=== PATIENT | female | born 1980 | race Caucasian/White ===

== ENCOUNTER 2017-02-12 17:57 | Emergency (ER) | payer OTHER ==
[~2017-02-12] VITALS: Ht 154.9 cm; Wt 52.2 kg
[~2017-02-12 17:57] MED LIST: DIVALPROEX SOD250 M2 PO; GABAPENTIN300 M2 PO; LAMOTRIGINE25 M3 PO; MEDROL4 M2 PO; TRAMADOL HCL50 M1 PO
[2017-02-12 18:01] VITALS: BP 119/84
--- NOTE | 2017-02-12 18:42 | ED HEADACHE COMPLAINT ---
History of Present Illness General Chief Complaint: Headache Stated Complaint: PT HAS A HEADACHE FOR 10 DYS Source: patient, old records Exam Limitations: no limitations Vital Signs & Intake/Output Vital Signs & Intake/Output Vital Signs Date Time Temp Pulse Resp B/P Pulse O2 O2 Flow FiO2 Ox Delivery Rate 02/12 1801 98.5 108 20 119/84 97 Room Air Allergies Coded Allergies: Iodinated Contrast Media - Oral and (ANAPHYLAXIS 02/12/17) aspirin (UPSET STOMACH 02/12/17) bupropion (From WELLBUTRIN) (UPSET STOMACH 02/12/17) naproxen (VOMITING 02/12/17) shellfish derived (SWELL, REDNESS, THROAT SWELLS 02/12/17) Reconcile Medications Cyclobenzaprine HCl 5 MG TABLET 1 TAB PO TIDPRN PRN neck pain/muscle relaxant may cause drowsiness Gabapentin 300 MG CAPSULE 1 CAP PO QPM SLEEP (Reported) Lamotrigine (Lamictal) 100 MG TABLET 1 TAB PO DAILY MOODS (Reported) Sumatriptan Succinate 25 MG TABLET 1 TAB PO AD PRN MIGRAINES (Reported) Triage Note: TRIAGE: PT TO ER C/C HEAD AND NECK PAIN X 10 DAYS, CONSTANT SINCE ONSET. HX OF NECK SURGERIES AND MIGRAINE HEADACHES. TAKING IMITREX AND ADVIL WITH NO RELIEF NOTED. +N/V. +LIGHT SENSITIVITY. -SOUND SENSITIVITY. Triage Nurses Notes Reviewed? yes : No Patient currently breastfeeds: No HPI: Patient is a 36 year old female presents complaining of neck pain radiating into her head x 10 days. Pain is a pressure pain, with mild associated photophobia. Pain is currently 10/10. Patient has been taking Imitrex and excedrin with no improvement. Associated nausea and vomiting this morning. Headache feels different than previous migraine headaches. Denies recent trauma, fevers, chills, rashes, numbness, extremity weakness. Past History Travel History Traveled to [place] past 21 day No Medical History Any Pertinent Medical History? see below for history Neurological: NONE EENT: NONE Cardiovascular: NONE Respiratory: NONE Gastrointestinal: NONE Hepatic: NONE Renal: NONE Musculoskeletal: disk herniation, chronic neck pain Psychiatric: mood disorder Endocrine: NONE Blood Disorders: NONE Cancer(s): NONE [employer]PERATOR/Reproductive: NONE Surgical History Surgical History: cervical spine surgery 2009 and 2011 Psychosocial History What is your primary language Algerian Tobacco Use: Current Daily Use Daily Tobacco Use Amount/Type: => 5 Cigarettes daily ETOH Use: denies use Illicit Drug Use: denies illicit drug use Family History Hx Contributory? No Review of Systems Review of Systems Constitutional: Denies: chills, fever. Eyes: Reports: photophobia. Denies: blurred vision. Ears, Nose, Throat, Mouth: Reports: no symptoms. Respiratory: Denies: cough, short of breath. Cardiovascular: Denies: chest pain. Gastrointestinal/Abdominal: Reports: nausea, vomiting. Denies: abdominal pain. Musculoskeletal: Reports: neck pain. Skin: Reports: no symptoms. Neurological/Psychological: Reports: see HPI. Hematologic/Endocrine: Reports: no symptoms. Endocrine: Reports: no symptoms. Immunologic/Allergic: Reports: no symptoms. Physical Exam Physical Exam General Appearance: well developed/nourished, alert, awake Head: atraumatic, normal appearance, placing pressure bitemporally mildly improves headache Eyes: Bilateral: normal appearance, PERRL, EOMI, other (grossly normal fundoscope exam ). Ears, Nose, Throat: hearing grossly normal Neck: normal inspection, supple, full range of motion, mild bilateral posterior cervical tenderness. no lymphadenopathy Respiratory: normal breath sounds, chest non-tender, no respiratory distress, lungs clear Cardiovascular: regular rate/rhythm Back: normal inspection, normal range of motion Extremities: normal inspection, normal capillary refill, normal range of motion, no edema Psychiatric: awake, alert, oriented x 3 Cranial Nerves: normal hearing, normal speech, PERRL Coordination/Gait: normal finger to nose, normal gait Motor/Sensory: no motor/sensory deficits Skin: intact, normal color, warm/dry Lymphatic: no anterior cervical harjeet Core Measures Severe Sepsis Present: No Septic Shock Present: No Progress Differential Diagnosis: carotid dissection, cav sinus thromb, cluster PADILLA, IC mass/tumor, intracranial Hem., musculoskeletal pain, subarach. Hem., tension PADILLA, viral cephalgia Plan of Care: Current Medications Sig/Rosa Start time Last Medication Dose Stop Time Status Admin Sodium Chloride 1,000 ML BOLUS ONE 02/12 1900 AC (Normal Saline 0.9%) 02/12 195902/12/2017 7:30:31 PM: Patient became slightly agitated and anxious after the Reglan and Benadryl. Patient requesting discharge. No signs of infectious etiology, no acute neurologic abnormalities. Labs and imaging deferred. Appears stable for discharge. (RERE GRAY,KIRILL) Departure Departure Disposition: HOME OR SELF CARE Condition: Stable Clinical Impression Primary Impression: Tension headache Referrals: MORIS BAUTISTA (PCP/Family) Additional Instructions: Follow up with your primary care provider for further evaluation. Return to the ER if fevers, numbness, weakness, rash, or worsening of symptoms. Departure Forms: Customer Survey General Discharge Information Prescriptions: Current Visit Scripts Cyclobenzaprine HCl 1 TAB PO TIDPRN PRN neck pain/muscle relaxant #12 TAB may cause drowsiness
[2017-02-12] MEDS ORDERED: SUMATRIPTAN SUC25 M1 PO (18:44)
[2017-02-12] MEDS ORDERED: LAMICTAL100 M2 PO (18:44)
[2017-02-12] MEDS ORDERED: CYCLOBENZAPRINE5 M2 PO (19:27)
== END 2017-02-12 19:30 ==
LOC: ERH 17:57
DX: G44.209 Tension-type headache, unspecified, not intractable (principal)
CPT/HCPCS: 96374; 96375; J1200; J2765